=== PATIENT | female | born 1985 ===

== ENCOUNTER 2017-02-10 08:30 | Day surgery (SDC) | payer BC ==
[~2017-02-10 08:30] MED LIST: Dexamethasone 4 MG/ML 5 ML MDV ONE; Glycopyrrolate 0.2 MG/ML SDV ONE; Lidocaine 1%/Sod Bicarbonate in NS 8.4% 1 ML Syringe PRN; Midazolam 1 MG/ML 2 ML SDV ONE; Neostigmine Methylsulfate 10 MG/10 ML MDV ONE; Ondansetron 4 MG/2 ML SDV ONE; Propofol 200 MG/20 ML SDV ONE; Sodium Chloride 0.9% 10 ML Syringe FLUSH PRN; ceFAZolin 1 GM Vial ONE; fentaNYL 250 MCG/5 ML SDV ONE
[2017-02-10] MEDS ORDERED: Bupivacaine 0.5% 30 ML SDV ONE (08:43)
--- NOTE | 2017-02-10 09:08 | PCM.PREANE ---
Preanesthetic Assessment - Anesthesia/Transfusion/Family Hx Anesthesia History: Prior Anesthesia Without Reaction Family History of Anesthesia Reaction: No - Review of Systems General: No Symptoms Pulmonary: Other (quit smoking 3 weeks ago) Cardiovascular: No Symptoms Gastrointestinal: Other (GERD, takes prevacid on occasion) Neurological: No Symptoms Other: Reports: None - Physical Assessment NPO Status Date: 02/09/17 NPO Status Time: 22:30 Pulse: 84 O2 Sat by Pulse Oximetry: 99 Respiratory Rate: 16 Blood Pressure: 116/73 Temperature: 36.8 C Weight: 65.7 kg ASA Class: 2 Mental Status: Alert & Oriented x3 Airway Class: Mallampati = 2 Dentition: Reports: Normal Dentition Thyro-Mental Finger Breadths: 3 Mouth Opening Finger Breadths: 3 ROM/Head Extension: Full Lungs: Clear to Auscultation, Normal Respiratory Effort Cardiovascular: Regular Rate, Regular Rhythm - Allergies Allergies/Adverse Reactions: Allergies Allergy/AdvReac Type Severity Reaction Status Date / Time varenicline [From Chantix] AdvReac Vomiting Verified 01/28/17 13:57 - Blood Blood Available: No Product(s) Available: None - Anesthesia Plan Pre-Op Medication Ordered: None - Acknowledgements Anesthesia Type Planned: General Anesthesia Pt an Appropriate Candidate for the Planned Anesthesia: Yes Alternatives and Risks of Anesthesia Discussed w Pt/Guardian: Yes Pt/Guardian Understands and Agrees with Anesthesia Plan: Yes PreAnesthesia Questionnaire HEENT History: Reports: Impaired Vision, Other (See Below) Other HEENT History: wears glasses Cardiovascular History: Reports: None Respiratory History: Reports: None Gastrointestinal History: Reports: None Genitourinary History: Reports: Renal Calculus, UTI, Recurrent, Other (See Below ) Other Genitourinary History: kidney stones, hydroureter, hydronephrosis TITLE SUPERVISOR History: Reports: Endometriosis, Other (See Below) Other OB/BYN History: pelvic pain, bicornate uterus Musculoskeletal History: Reports: None Neurological History: Reports: None Psychiatric History: Reports: None Endocrine/Metabolic History: Reports: None Hematologic History: Reports: None Immunologic History: Reports: None Oncologic (Cancer) History: Reports: None Dermatologic History: Reports: None - Past Surgical History Head Surgeries/Procedures: Reports: None Cardiovascular Surgical History: Reports: None Respiratory Surgical History: Reports: None GI Surgical History: Reports: None Female Surgical History: Reports: Section, Hysterectomy Endocrine Surgical History: Reports: None Neurological Surgical History: Reports: None Musculoskeletal Surgical History: Reports: None Oncologic Surgical History: Reports: None Dermatological Surgical History: Reports: None - SUBSTANCE USE Smoking Status *Q: Former Smoker - HOME MEDS Home Medications: Home Meds . [No Known Home Meds] 02/06/17 [History] - CURRENT (IN HOUSE) MEDS Current Meds: Current Medications Lactated Ringer's (Ringers, Lactated) 1,000 mls @ 125 mls/hr IV ASDIRECTED JESSICA Stop: 02/10/17 23:00 Lidocaine/Sodium Bicarbonate (Buffered Lidocaine 1% In Ns 8.4%) 0.25 ml .XX ONETIME PRN PRN Reason: Prior to IV Start Stop: 02/10/17 18:00 Sodium Chloride (Saline Flush) 10 ml FLUSH ASDIRECTED PRN PRN Reason: Keep Vein Open Stop: 02/10/17 18:00 Discontinued Medications Bupivacaine HCl (Marcaine 0.5%) Confirm Administered Dose 30 ml .ROUTE .STK-MED ONE Stop: 02/10/17 08:44 Cefazolin Sodium (Ancef) Confirm Administered Dose 2 gm .ROUTE .STK-MED ONE Stop: 02/10/17 08:09 Dexamethasone (Dexamethasone) Confirm Administered Dose 20 mg .ROUTE .STK-MED ONE Stop: 02/10/17 08:09 Fentanyl (Sublimaze) Confirm Administered Dose 250 mcg .ROUTE .STK-MED ONE Stop: 02/10/17 08:10 Glycopyrrolate (Robinul) Confirm Administered Dose 0.6 mg .ROUTE .STK-MED ONE Stop: 02/10/17 08:25 Midazolam HCl (Versed 1 Mg/Ml) Confirm Administered Dose 2 mg .ROUTE .STK-MED ONE Stop: 02/10/17 08:10 Neostigmine Methylsulfate (Neostigmine Methylsulfate) Confirm Administered Dose 10 mg .ROUTE .STK-MED ONE Stop: 02/10/17 08:25 Ondansetron HCl (Zofran) Confirm Administered Dose 4 mg .ROUTE .STK-MED ONE Stop: 02/10/17 08:09 Propofol (Diprivan 20 Ml) Confirm Administered Dose 200 mg .ROUTE .STK-MED ONE Stop: 02/10/17 08:09
[2017-02-10] MEDS ORDERED: HYDROmorphone 0.5 MG/0.5 ML Syringe IVPUSH PRN (09:10)
[2017-02-10] MEDS ORDERED: fentaNYL 100 MCG/2 ML SDV IVPUSH PRN (09:10)
[2017-02-10] MEDS ORDERED: Ondansetron 4 MG/2 ML SDV IVPUSH PRN ×2 (09:10→11:30)
[2017-02-10] MEDS ORDERED: Metoclopramide 10 MG/2 ML SDV IVPUSH PRN (09:10)
[2017-02-10] MEDS: Lactated Ringers 1,000 ML IV SCH ×2 (09:20→12:03)
[2017-02-10] MEDS ORDERED: Ketorolac 30 MG/ML SDV ONE (10:41)
[2017-02-10] MEDS ORDERED: Glycopyrrolate 0.2 MG/ML SDV ONE (11:01)
[2017-02-10] MEDS ORDERED: Neostigmine Methylsulfate 10 MG/10 ML MDV ONE (11:01)
--- NOTE | 2017-02-10 11:16 | PCM.POSTAN ---
POST ANESTHESIA ASSESSMENT - MENTAL STATUS Mental Status: Alert, Oriented - VITAL SIGNS Pulse Rate: 92 SaO2: 100 Resp Rate: 16 Blood Pressure: 124/87 Temperature: 37.2 C - RESPIRATORY Respiratory Status: Respiratory Rate WNL, Airway Patent, O2 Saturation Stable, Supplemental Oxygen - CARDIOVASCULAR CV Status: Pulse Rate WNL, Blood Pressure Stable - GASTROINTESTINAL GI Status: No Symptoms - PAIN Pain Score: 3 (fentanyl given) - POST OP HYDRATION Hydration Status: Adequate & Stable
--- NOTE | 2017-02-10 11:23 | PCM.OPNOTE ---
- General Post-Op/Procedure Note Date of Surgery/Procedure: 02/10/17 Operative Procedure(s): Laparoscopy with removal of the right ovary and cystic structure consistent with possible hydrosalpinx. Pre Op Diagnosis: Pelvic pain, dyspareunia, right lower quadrant pain Post-Op Diagnosis: Same suspected small portion of tube remaining with hydrosalpinx versus hidradenitis cyst of morganii clinical evaluation more consistent with hydrosalpinx Path report pending Anesthesia Technique: General ET Tube Primary Surgeon: Dewey De Los Santos Secondary Surgeon: Solo Zamora Anesthesia Provider: Mary Angel (Pietro Mcgill CRNAs) [employer] Wiring Technician: Mary Titus (PAS) [employer] Wiring Technician: Amrit Levy ([id number]) Fluid Replacement, Intraop: 800 Output, Urine Amount: 140 EBL in mLs: 5 Drain/Tube Comments:: None Complications: None Condition: Good Free Text/Narrative:: Patient was transported to operating room #2 and placed under general anesthesia with endotracheal intubation the supine position. Prepared and draped in sterile fashion Thompson catheter placed to gravity drainage subsequently removed after the surgery. Patient had SCDs in place and functioning prior surgery. Ancef 2 g given intravenously prior surgery. Timeout performed confirming name date of and procedure as laparoscopy and removal right ovary possible removal of additional ovary (right ovary and possible hydrosalpinx removed left ovary not removed) examination under anesthesia had revealed right adnexal mass consistent with ovary. The patient having been prepared and draped in a sterile fashion a incision was made at the umbilicus and in the midline suprapubically injecting 1-2 mL of 0.25% Marcaine without epinephrine and subsequently an additional left sided incision was made injecting same there and using 5 mm port at the umbilicus left side and midline initially in subsequent 12 mm port to remove the ovary and remaining portion of the tube suspected be hydrosalpinx. Varies needle was introduced and pneumoperitoneum was obtained and then 5 mm trochars introduced at the umbilicus and suprapubic area as noted this was subsequently converted to a 12 mm port. Examination of the pelvic organs was accomplished left ovary appeared normal the right ovary had an attached fluid-filled cystic mass consistent with a hydrosalpinx. Gallbladder was normal the appendix was not able to be visualized. The ovary was grasped after placing a third port in the left side elevated on traction utilizing Endo seal crossclamping activating and incising the right ovary and cystic structure consistent with hydrosalpinx removed. Hemostasis was normal the left ovary was not removed. The gallbladder appeared normal. The 12 mm port having been placed the Endobag was placed and the ovary and tube removed through the suprapubic incision. Interceed was then introduced and placed in the area of surgery. Moistened with saline. Sponge needle pack asthma sharp count correct 2 and the ports were removed with observation of port entry points to make sure no active bleeding into the peritoneal cavity. The 12 mm port section suprapubically was closed in the anterior fascia with 0 Vicryl. The skin in all 3 insertion areas closed with 3-0 Monocryl subcuticular interrupted sutures. Patient transported postanesthesia care unit in satisfactory condition she received 1 dose of Toradol. She's been given a prescription for Percocet 5/325 dispensed 20 sig one to 2 by mouth every 6-8 hours when necessary pain alternating with Motrin 600 mg by mouth every 6H. 10 images taken image 001 shows the left ovary in the center image 002 shows the cystic structure consistent with hydrosalpinx on the right side. Image 003 shows the liver and gallbladder image 004 shows transection of the infundibulopelvic ligament. Image 005 shows area after removal of the tube and cystic structure consistent with hydrosalpinx. Cul-de-sac showed no endometriosis evident image 006. Image 007 shows Interceed after moistening same. Image 008 shows the left flank incision no bleeding. Image 009 shows the suprapubic incision closure with no active bleeding. Image 010 shows Interceed.
[2017-02-10] MEDS ORDERED: Acetaminophen/oxyCODONE 325-5 MG Tab PO PRN (11:30)
[2017-02-10 15:11] VITALS: BP 102/70
== END 2017-02-10 15:00 | disposition home or self-care (01) ==
LOC: JD.SDS 08:30
PROVIDERS: ATTEND Obstetrics & Gynecology
DX: N73.6 Female pelvic peritoneal adhesions (postinfective) (principal); N83.291 Other ovarian cyst, right side; Z87.440 Personal history of urinary (tract) infections; Z87.442 Personal history of urinary calculi; Z87.891 Personal history of nicotine dependence; Z88.8 Allergy status to other drugs, medicaments and biological substances; Z90.710 Acquired absence of both cervix and uterus; Z98.890 Other specified postprocedural states
CPT/HCPCS: 36415; 58661; 86850; 86900; 86901; A9270; C1765; J0690; J1100; J1170; J1885; J2250; J2405; J2710; J3010; J3490; J7120; 00840; J2704